=== PATIENT | male | born 1975 | race Caucasian/White ===

== ENCOUNTER 2018-02-06 09:37 | Outpatient (CLI) | payer MEDICAID ==
[2018-02-06 09:35] VITALS: BP 112/71
[~2018-02-06 09:37] MED LIST: GABA-532 PO; LACTC PO; METF500T4 PO; MULT-1085 PO; PER5325T PO
[2018-02-06] MEDS ORDERED: LIDOcaine 2% 5ml jelly ONE (10:27)
== END 2018-02-06 11:15 | disposition home or self-care (01) ==
LOC: ORTHO 09:37
PROVIDERS: ATTEND Nurse Practitioner Family
DX: M86.8X8 Other osteomyelitis, other site (principal); F12.90 Cannabis use, unspecified, uncomplicated; E11.69 Type 2 diabetes mellitus with other specified complication; M00.9 Pyogenic arthritis, unspecified; Z86.14 Personal history of Methicillin resistant Staphylococcus aureus infection; Z88.0 Allergy status to penicillin; Z89.612 Acquired absence of left leg above knee
CPT/HCPCS: 99214

== ENCOUNTER 2018-02-09 09:20 | Day surgery (SDC) | payer MEDICAID ==
[2018-02-09] MEDS ORDERED: LIDOcaine 2% 5ml jelly ONE (09:40)
[2018-02-09] MEDS ORDERED: HYDR-565 PO (10:23)
== END 2018-02-09 10:31 | disposition home or self-care (01) ==
LOC: WOUND CARE 09:20
PROVIDERS: ATTEND Surgery
DX: E11.622 Type 2 diabetes mellitus with other skin ulcer (principal); L89.153 Pressure ulcer of sacral region, stage 3; E11.40 Type 2 diabetes mellitus with diabetic neuropathy, unspecified; E11.52 Type 2 diabetes mellitus with diabetic peripheral angiopathy with gangrene; E11.69 Type 2 diabetes mellitus with other specified complication; M86.662 Other chronic osteomyelitis, left tibia and fibula; M00.9 Pyogenic arthritis, unspecified; F12.90 Cannabis use, unspecified, uncomplicated; Z89.612 Acquired absence of left leg above knee
CPT/HCPCS: 17250; A6021; A6206; A6213

== ENCOUNTER 2018-02-23 09:25 | Day surgery (SDC) | payer MEDICAID ==
[~2018-02-23 09:25] MED LIST changes: +HYDR-565 PO; -LACTC PO; -PER5325T PO
[2018-02-23] MEDS ORDERED: LIDOcaine 2% 5ml jelly ONE (09:42)
== END 2018-02-23 11:30 | disposition home or self-care (01) ==
LOC: WOUND CARE 09:25
PROVIDERS: ATTEND Surgery
DX: E11.622 Type 2 diabetes mellitus with other skin ulcer (principal); L98.491 Non-pressure chronic ulcer of skin of other sites limited to breakdown of skin; L89.893 Pressure ulcer of other site, stage 3; E11.42 Type 2 diabetes mellitus with diabetic polyneuropathy; E11.52 Type 2 diabetes mellitus with diabetic peripheral angiopathy with gangrene; M86.662 Other chronic osteomyelitis, left tibia and fibula; M00.9 Pyogenic arthritis, unspecified; M00.262 Other streptococcal arthritis, left knee; B95.4 Other streptococcus as the cause of diseases classified elsewhere; F12.90 Cannabis use, unspecified, uncomplicated; E11.69 Type 2 diabetes mellitus with other specified complication; Z89.612 Acquired absence of left leg above knee
CPT/HCPCS: 17250; 36416; 82948; A6021; A6206; A6212

== ENCOUNTER 2018-03-02 09:30 | Day surgery (SDC) | payer MEDICAID ==
[2018-03-02] MEDS ORDERED: LIDOcaine 2% 5ml jelly ONE (10:08)
== END 2018-03-02 11:00 | disposition home or self-care (01) ==
LOC: WOUND CARE 09:30
PROVIDERS: ATTEND Surgery
DX: E11.622 Type 2 diabetes mellitus with other skin ulcer (principal); L98.491 Non-pressure chronic ulcer of skin of other sites limited to breakdown of skin; L89.893 Pressure ulcer of other site, stage 3; E11.42 Type 2 diabetes mellitus with diabetic polyneuropathy; E11.52 Type 2 diabetes mellitus with diabetic peripheral angiopathy with gangrene; E11.69 Type 2 diabetes mellitus with other specified complication; M86.662 Other chronic osteomyelitis, left tibia and fibula; M00.9 Pyogenic arthritis, unspecified; M00.262 Other streptococcal arthritis, left knee; B95.4 Other streptococcus as the cause of diseases classified elsewhere; F12.90 Cannabis use, unspecified, uncomplicated; Z89.612 Acquired absence of left leg above knee
CPT/HCPCS: 36416; 82948; 97597; A6021; A6206; A6213; A4456

== ENCOUNTER 2018-03-06 10:22 | Outpatient (CLI) | payer MEDICAID ==
[~2018-03-06 10:22] MED LIST changes: +METF-436 PO; -METF500T4 PO
== END 2018-03-06 11:55 | disposition home or self-care (01) ==
LOC: ORTHO 10:22
PROVIDERS: ATTEND Nurse Practitioner Family
DX: M86.9 Osteomyelitis, unspecified (principal); E11.69 Type 2 diabetes mellitus with other specified complication

== ENCOUNTER 2018-03-09 09:25 | Day surgery (SDC) | payer MEDICAID ==
[2018-03-09] MEDS ORDERED: LIDOcaine 2% 5ml jelly ONE ×2 (09:40)
== END 2018-03-09 10:49 | disposition home or self-care (01) ==
LOC: WOUND CARE 09:25
PROVIDERS: ATTEND Surgery
DX: E11.622 Type 2 diabetes mellitus with other skin ulcer (principal); L98.491 Non-pressure chronic ulcer of skin of other sites limited to breakdown of skin; L89.893 Pressure ulcer of other site, stage 3; E11.42 Type 2 diabetes mellitus with diabetic polyneuropathy; E11.52 Type 2 diabetes mellitus with diabetic peripheral angiopathy with gangrene; E11.69 Type 2 diabetes mellitus with other specified complication; M86.662 Other chronic osteomyelitis, left tibia and fibula; M00.9 Pyogenic arthritis, unspecified; M00.262 Other streptococcal arthritis, left knee; B95.4 Other streptococcus as the cause of diseases classified elsewhere; F12.90 Cannabis use, unspecified, uncomplicated; Z89.612 Acquired absence of left leg above knee
CPT/HCPCS: 15271; 36416; 82948; A6209; A6222; Q4131; A6250

== ENCOUNTER 2018-03-09 10:56 | Outpatient (CLI) | payer MEDICAID | END 2018-03-09 11:43 | disposition home or self-care (01) | LOC: ORTHO 10:56 | PROVIDERS: ATTEND Nurse Practitioner Family | DX: M86.8X8 Other osteomyelitis, other site (principal); E11.69 Type 2 diabetes mellitus with other specified complication; M00.9 Pyogenic arthritis, unspecified; Z88.0 Allergy status to penicillin; Z89.612 Acquired absence of left leg above knee; Z88.8 Allergy status to other drugs, medicaments and biological substances | CPT/HCPCS: 99212 ==

== ENCOUNTER 2018-03-23 09:30 | Day surgery (SDC) | payer MEDICAID ==
[2018-03-23] MEDS ORDERED: LIDOcaine 2% 5ml jelly ONE (09:51)
== END 2018-03-23 11:11 | disposition home or self-care (01) ==
LOC: WOUND CARE 09:30
PROVIDERS: ATTEND Surgery
DX: E11.622 Type 2 diabetes mellitus with other skin ulcer (principal); L98.491 Non-pressure chronic ulcer of skin of other sites limited to breakdown of skin; L89.893 Pressure ulcer of other site, stage 3; E11.42 Type 2 diabetes mellitus with diabetic polyneuropathy; E11.52 Type 2 diabetes mellitus with diabetic peripheral angiopathy with gangrene; E11.69 Type 2 diabetes mellitus with other specified complication; M86.662 Other chronic osteomyelitis, left tibia and fibula; M00.9 Pyogenic arthritis, unspecified; M00.262 Other streptococcal arthritis, left knee; B95.4 Other streptococcus as the cause of diseases classified elsewhere; F12.90 Cannabis use, unspecified, uncomplicated; Z89.612 Acquired absence of left leg above knee
CPT/HCPCS: 17250; A6021; A6196; A6206; A6213

== ENCOUNTER 2018-03-30 09:12 | Day surgery (SDC) | payer MEDICAID ==
[2018-03-30] MEDS ORDERED: LIDOcaine 2% 5ml jelly ONE (09:51)
== END 2018-03-30 11:15 | disposition home or self-care (01) ==
LOC: WOUND CARE 09:12
PROVIDERS: ATTEND Surgery
DX: E11.622 Type 2 diabetes mellitus with other skin ulcer (principal); L89.893 Pressure ulcer of other site, stage 3; L98.491 Non-pressure chronic ulcer of skin of other sites limited to breakdown of skin; E11.621 Type 2 diabetes mellitus with foot ulcer; L97.511 Non-pressure chronic ulcer of other part of right foot limited to breakdown of skin; E11.42 Type 2 diabetes mellitus with diabetic polyneuropathy; E11.52 Type 2 diabetes mellitus with diabetic peripheral angiopathy with gangrene; E11.69 Type 2 diabetes mellitus with other specified complication; M86.662 Other chronic osteomyelitis, left tibia and fibula; B35.3 Tinea pedis; M00.9 Pyogenic arthritis, unspecified; M00.262 Other streptococcal arthritis, left knee; F12.90 Cannabis use, unspecified, uncomplicated; Z89.612 Acquired absence of left leg above knee
CPT/HCPCS: 17250; A6021; A6206; A6212

== ENCOUNTER 2018-04-06 09:22 | Day surgery (SDC) | payer MEDICAID ==
[2018-04-06] MEDS ORDERED: LIDOcaine 2% 5ml jelly ONE (09:48)
[2018-04-06] MEDS ORDERED: mupirocin 2% ointment 22GM ONE (10:29)
== END 2018-04-06 10:38 | disposition home or self-care (01) ==
LOC: WOUND CARE 09:22
PROVIDERS: ATTEND Surgery
DX: E11.622 Type 2 diabetes mellitus with other skin ulcer (principal); L89.893 Pressure ulcer of other site, stage 3; L98.491 Non-pressure chronic ulcer of skin of other sites limited to breakdown of skin; E11.621 Type 2 diabetes mellitus with foot ulcer; L97.511 Non-pressure chronic ulcer of other part of right foot limited to breakdown of skin; E11.42 Type 2 diabetes mellitus with diabetic polyneuropathy; E11.52 Type 2 diabetes mellitus with diabetic peripheral angiopathy with gangrene; E11.65 Type 2 diabetes mellitus with hyperglycemia; E11.69 Type 2 diabetes mellitus with other specified complication; M86.662 Other chronic osteomyelitis, left tibia and fibula; B35.3 Tinea pedis; M00.9 Pyogenic arthritis, unspecified; M00.262 Other streptococcal arthritis, left knee; F12.90 Cannabis use, unspecified, uncomplicated; Z89.612 Acquired absence of left leg above knee
CPT/HCPCS: 17250; 36416; 82948; A6021; A6206; A6212

== ENCOUNTER 2018-04-20 09:28 | Day surgery (SDC) | payer MEDICAID ==
[2018-04-20] MEDS ORDERED: LIDOcaine 2% 5ml jelly ONE (09:42)
== END 2018-04-20 11:26 | disposition home or self-care (01) ==
LOC: WOUND CARE 09:28
PROVIDERS: ATTEND Surgery
DX: E11.622 Type 2 diabetes mellitus with other skin ulcer (principal); L89.893 Pressure ulcer of other site, stage 3; L98.491 Non-pressure chronic ulcer of skin of other sites limited to breakdown of skin; E11.621 Type 2 diabetes mellitus with foot ulcer; L97.511 Non-pressure chronic ulcer of other part of right foot limited to breakdown of skin; E11.42 Type 2 diabetes mellitus with diabetic polyneuropathy; E11.52 Type 2 diabetes mellitus with diabetic peripheral angiopathy with gangrene; E11.65 Type 2 diabetes mellitus with hyperglycemia; E11.69 Type 2 diabetes mellitus with other specified complication; M86.662 Other chronic osteomyelitis, left tibia and fibula; B35.3 Tinea pedis; M00.9 Pyogenic arthritis, unspecified; M00.262 Other streptococcal arthritis, left knee; F12.90 Cannabis use, unspecified, uncomplicated; Z89.612 Acquired absence of left leg above knee
CPT/HCPCS: 17250; 36416; 82948; A6021; A6206; A6212

== ENCOUNTER 2018-05-04 09:25 | Day surgery (SDC) | payer MEDICAID ==
[2018-05-04] MEDS ORDERED: LIDOcaine 2% 5ml jelly ONE (09:51)
== END 2018-05-04 11:27 | disposition home or self-care (01) ==
LOC: WOUND CARE 09:25
PROVIDERS: ATTEND Surgery
DX: E11.622 Type 2 diabetes mellitus with other skin ulcer (principal); L89.153 Pressure ulcer of sacral region, stage 3; L98.491 Non-pressure chronic ulcer of skin of other sites limited to breakdown of skin; E11.42 Type 2 diabetes mellitus with diabetic polyneuropathy; E11.52 Type 2 diabetes mellitus with diabetic peripheral angiopathy with gangrene; I96 Gangrene, not elsewhere classified; E11.65 Type 2 diabetes mellitus with hyperglycemia; E11.69 Type 2 diabetes mellitus with other specified complication; M86.662 Other chronic osteomyelitis, left tibia and fibula; B35.3 Tinea pedis; M00.9 Pyogenic arthritis, unspecified; M00.262 Other streptococcal arthritis, left knee; F12.90 Cannabis use, unspecified, uncomplicated; Z89.612 Acquired absence of left leg above knee
CPT/HCPCS: 17250; A6021; A6206; A6212

== ENCOUNTER 2018-05-25 09:20 | Day surgery (SDC) | payer MEDICAID ==
[2018-05-25] MEDS: LIDOcaine 2% 5ml jelly ONE (09:59)
== END 2018-05-25 10:59 | disposition home or self-care (01) ==
LOC: WOUND CARE 09:20
PROVIDERS: ATTEND Surgery
DX: E11.622 Type 2 diabetes mellitus with other skin ulcer (principal); L89.153 Pressure ulcer of sacral region, stage 3; L98.491 Non-pressure chronic ulcer of skin of other sites limited to breakdown of skin; E11.42 Type 2 diabetes mellitus with diabetic polyneuropathy; E11.52 Type 2 diabetes mellitus with diabetic peripheral angiopathy with gangrene; I96 Gangrene, not elsewhere classified; E11.65 Type 2 diabetes mellitus with hyperglycemia; E11.69 Type 2 diabetes mellitus with other specified complication; M86.662 Other chronic osteomyelitis, left tibia and fibula; B35.3 Tinea pedis; M00.9 Pyogenic arthritis, unspecified; M00.262 Other streptococcal arthritis, left knee; F12.90 Cannabis use, unspecified, uncomplicated; Z89.612 Acquired absence of left leg above knee
CPT/HCPCS: 17250; 36416; 82948; A6021; A6206; A6212

== ENCOUNTER 2018-07-10 13:20 | Emergency (ER) | payer MEDICAID ==
[~2018-07-10] VITALS: Ht 177.8 cm; Wt 77.3 kg
[2018-07-10] MEDS ORDERED: normal saline 1000ML IV soln IV ONE (13:40)
[2018-07-10 14:11] LABS: BASOPHILS % (AUTO) 0.2 % (0-1); EOSINOPHILS % (AUTO) 0.1 % (0-6); HEMATOCRIT 30.4 % (42.0-52.0); HEMOGLOBIN 10.6 g/dl (14.0-17.9); LYMPHOCYTES # (AUTO) 0.4 X10'3 (1.1-4.8); LYMPHOCYTES % (AUTO) 3.6 % (21-51); MEAN CORPUSCULAR HEMOGLOBIN 30.4 PG (27.0-31.0); MEAN CORPUSCULAR HGB CONC 34.7 % (33.0-36.5); MEAN CORPUSCULAR VOLUME 87.7 FL (78-98); MEAN PLATELET VOLUME 10.2 FL (7.4-10.4); MONOCYTES # (AUTO) 0.9 X10'3 (0-0.9); MONOCYTES % (AUTO) 7.8 % (2-12); NEUTROPHILS # (AUTO) 9.9 X10'3 (1.8-7.7); NEUTROPHILS % (AUTO) 88.3 % (42-75); PLATELET COUNT 169 X10'3 (140-440); RED BLOOD COUNT 3.47 X10'6 (4.70-6.10); RED CELL DISTRIBUTION WIDTH 12.9 % (11.5-14.5); WHITE BLOOD COUNT 11.2 X10'3 (4.5-11.0)
[2018-07-10 14:21] LABS: PARTIAL THROMBOPLASTIN TIME 31 SECONDS (22-32)
[2018-07-10 14:30] LABS: PLATELET ESTIMATE NORMAL; TOTAL CELLS COUNTED 100
[2018-07-10 14:35] LABS: ALANINE AMINOTRANSFERASE 16 U/L (12-78); ALBUMIN/GLOBULIN RATIO 0.8 (1.1-1.5); ALKALINE PHOSPHATASE 69 IU/L (46-116); ANION GAP 13 (8-16); ASPARTATE AMINO TRANSFERASE 11 U/L (10-37); BILIRUBIN,TOTAL 0.7 MG/DL (0.1-1.0); BLOOD UREA NITROGEN 15 MG/DL (7-18); BUN/CREATININE RATIO 21.4 (5.4-32.0); CALCIUM 9.1 MG/DL (8.5-10.1); CHLORIDE 102 MMOL/L (99-107); GLUCOSE 109 MG/DL (70-104); MAGNESIUM 1.6 MG/DL (1.5-2.4); POTASSIUM 3.3 MMOL/L (3.5-5.1); SODIUM 137 MMOL/L (135-145); TOTAL CARBON DIOXIDE 22.5 MMOL/L (24-32); TOTAL PROTEIN 6.7 G/DL (6.4-8.2); eGFR > 90 ML/MIN
[2018-07-10 14:42] LABS: CLARITY,URINE CLEAR (Clear); COLOR,URINE YELLOW (Yellow); GLUCOSE, URINE NEGATIVE (Neg); KETONES,URINE >=80 mg/dl (Neg); LEUKOCYTE ESTERASE ,URINE NEGATIVE (Neg); NITRITES, URINE NEGATIVE (Neg); OCCULT BLOOD,URINE SMALL (Neg); PROTEIN,URINE 30 mg/dl (Neg); UROBILINOGEN,URINE 0.2 E.U/dL (0.2-1.0)
[2018-07-10 14:44] LABS: UA COLLECTION TYPE URINAL
[2018-07-10 14:52] LABS: BACTERIA,URINE 1+ /HPF (Neg); HYALINE CASTS 0-3 /LPF (NEGATIVE); MUCUS STRANDS FEW /LPF (Neg); SQUAMOUS EPITHELIAL CELL,UR FEW /LPF (FEW); WBC,URINE 0-4 /HPF (0-4)
[2018-07-10] MEDS ORDERED: iohexol 300mg/ml 100ml inj. ONE (14:52)
[2018-07-10] MEDS ORDERED: MESSAGE TO NURSING PO NR (16:32)
[2018-07-10] MEDS ORDERED: metroNIDAZOLE-Flagyl 500mg/NS 100 ML IV ONE (18:00)
[2018-07-10] MEDS ORDERED: acetaminophen 325mg tablet PO ONE (18:00)
[2018-07-10] MEDS ORDERED: ondansetron/PF 4mg/2ml inj IV ONE (18:00)
[2018-07-10] MEDS ORDERED: normal saline 1000ML IV soln IVB ONE (18:00)
[2018-07-10] MEDS ORDERED: levoFLOXACIN-Levaquin 500mg/D5 100 ML IV ONE (18:00)
[2018-07-10] MEDS ORDERED: CIPR-230 PO (19:14)
[2018-07-10] MEDS ORDERED: METR500T4 PO (19:14)
[2018-07-10] MEDS ORDERED: ONDA8TAB6 PO (19:19)
[2018-07-10 19:46] VITALS: BP 121/57
== END 2018-07-10 23:06 | disposition home or self-care (01) ==
LOC: ER 13:20
DX: K52.9 Noninfective gastroenteritis and colitis, unspecified (principal); E86.0 Dehydration; R50.9 Fever, unspecified; E11.9 Type 2 diabetes mellitus without complications; G89.29 Other chronic pain; Z56.0 Unemployment, unspecified; Z93.3 Colostomy status; Z88.0 Allergy status to penicillin; Z88.1 Allergy status to other antibiotic agents; Z91.012 Allergy to eggs
CPT/HCPCS: 36415; 71045; 74177; 80053; 81001; 83605; 83735; 84145; 85025; 85610; 85730; 87040; 96361; 96365; 96375; 99285; J1956; J2405; J3490; J7030; Q9967

== ENCOUNTER 2018-07-20 10:28 | Day surgery (SDC) | payer MEDICAID ==
[~2018-07-20 10:28] MED LIST changes: +CIPR-230 PO; +METR500T4 PO; +ONDA8TAB6 PO
[2018-07-20] MEDS ORDERED: LIDOcaine/PRILOcaine 5gm cream TP ONE (11:14)
== END 2018-07-20 11:47 | disposition home or self-care (01) ==
LOC: WOUND CARE 10:28
PROVIDERS: ATTEND Surgery
DX: E11.622 Type 2 diabetes mellitus with other skin ulcer (principal); L89.153 Pressure ulcer of sacral region, stage 3; L98.491 Non-pressure chronic ulcer of skin of other sites limited to breakdown of skin; E11.42 Type 2 diabetes mellitus with diabetic polyneuropathy; E11.52 Type 2 diabetes mellitus with diabetic peripheral angiopathy with gangrene; I96 Gangrene, not elsewhere classified; E11.65 Type 2 diabetes mellitus with hyperglycemia; E11.69 Type 2 diabetes mellitus with other specified complication; M86.662 Other chronic osteomyelitis, left tibia and fibula; B35.3 Tinea pedis; M00.9 Pyogenic arthritis, unspecified; M00.262 Other streptococcal arthritis, left knee; F12.90 Cannabis use, unspecified, uncomplicated; Z89.612 Acquired absence of left leg above knee
CPT/HCPCS: 17250; 36416; 82948; A6021; A6212

== ENCOUNTER 2018-08-10 10:26 | Day surgery (SDC) | payer MEDICAID ==
[~2018-08-10 10:26] MED LIST changes: -CIPR-230 PO; +HYDR-4353 PO; -HYDR-565 PO
[2018-08-10] MEDS ORDERED: LIDOcaine/PRILOcaine 5gm cream TP ONE (11:15)
== END 2018-08-10 12:10 | disposition home or self-care (01) ==
LOC: WOUND CARE 10:26
PROVIDERS: ATTEND Surgery
DX: E11.622 Type 2 diabetes mellitus with other skin ulcer (principal); L89.153 Pressure ulcer of sacral region, stage 3; L98.491 Non-pressure chronic ulcer of skin of other sites limited to breakdown of skin; E11.42 Type 2 diabetes mellitus with diabetic polyneuropathy; E11.52 Type 2 diabetes mellitus with diabetic peripheral angiopathy with gangrene; I96 Gangrene, not elsewhere classified; E11.65 Type 2 diabetes mellitus with hyperglycemia; E11.69 Type 2 diabetes mellitus with other specified complication; M86.662 Other chronic osteomyelitis, left tibia and fibula; B35.3 Tinea pedis; M00.9 Pyogenic arthritis, unspecified; M00.262 Other streptococcal arthritis, left knee; F12.90 Cannabis use, unspecified, uncomplicated; Z89.612 Acquired absence of left leg above knee
CPT/HCPCS: 17250; A6021; A6212

== ENCOUNTER 2018-09-07 10:15 | Day surgery (SDC) | payer MEDICAID ==
[~2018-09-07 10:15] MED LIST changes: -METR500T4 PO
[2018-09-07] MEDS ORDERED: LIDOcaine/PRILOcaine 5gm cream TP ONE (11:18)
== END 2018-09-07 11:46 | disposition home or self-care (01) ==
LOC: WOUND CARE 10:15
PROVIDERS: ATTEND Surgery
DX: E11.622 Type 2 diabetes mellitus with other skin ulcer (principal); L89.153 Pressure ulcer of sacral region, stage 3; L98.491 Non-pressure chronic ulcer of skin of other sites limited to breakdown of skin; E11.42 Type 2 diabetes mellitus with diabetic polyneuropathy; E11.52 Type 2 diabetes mellitus with diabetic peripheral angiopathy with gangrene; I96 Gangrene, not elsewhere classified; E11.65 Type 2 diabetes mellitus with hyperglycemia; E11.69 Type 2 diabetes mellitus with other specified complication; M86.662 Other chronic osteomyelitis, left tibia and fibula; B35.3 Tinea pedis; M00.9 Pyogenic arthritis, unspecified; M00.262 Other streptococcal arthritis, left knee; F12.90 Cannabis use, unspecified, uncomplicated; Z89.612 Acquired absence of left leg above knee
CPT/HCPCS: 17250; 97597; A6021; A6212

== ENCOUNTER 2018-10-12 10:14 | Day surgery (SDC) | payer MEDICAID | END 2018-10-12 11:42 | disposition home or self-care (01) | LOC: WOUND CARE 10:14 | PROVIDERS: ATTEND Surgery | DX: E11.622 Type 2 diabetes mellitus with other skin ulcer (principal); L89.153 Pressure ulcer of sacral region, stage 3; L98.491 Non-pressure chronic ulcer of skin of other sites limited to breakdown of skin; E11.42 Type 2 diabetes mellitus with diabetic polyneuropathy; E11.52 Type 2 diabetes mellitus with diabetic peripheral angiopathy with gangrene; I96 Gangrene, not elsewhere classified; E11.65 Type 2 diabetes mellitus with hyperglycemia; M86.662 Other chronic osteomyelitis, left tibia and fibula; B35.3 Tinea pedis; M00.9 Pyogenic arthritis, unspecified; M00.262 Other streptococcal arthritis, left knee; F12.90 Cannabis use, unspecified, uncomplicated; Z89.612 Acquired absence of left leg above knee | CPT/HCPCS: 36416; 82948; 97597; A6021; A6206; A6212 ==

== ENCOUNTER 2021-06-07 12:51 | Inpatient (IN) | payer MEDICAID ==
[~2021-06-07] VITALS: Ht 177.8 cm; Wt 84.5 kg
[2021-06-07] MEDS ORDERED: diazepam inj 5 MG/ML inj. IV ONE (13:25)
[2021-06-07 13:39] LABS: EOSINOPHILS # (AUTO) 0.1 X10'3 (0-0.9); WHITE BLOOD COUNT 14.8 X10'3 (4.5-11.0)
[2021-06-07 13:41] LABS: EOSINOPHILS % (AUTO) 0.4 % (0-6); RED BLOOD COUNT 4.97 X10'6 (4.70-6.10)
[2021-06-07 13:46] LABS: BASOPHILS % (AUTO) 0.2 % (0-1); HEMATOCRIT 43.3 % (42.0-52.0); HEMOGLOBIN 14.3 g/dl (14.0-17.9); LYMPHOCYTES # (AUTO) 0.9 X10'3 (1.1-4.8); LYMPHOCYTES % (AUTO) 5.8 % (21-51); MEAN CORPUSCULAR HEMOGLOBIN 28.7 PG (27.0-31.0); MEAN CORPUSCULAR VOLUME 87.1 FL (78-98); MEAN PLATELET VOLUME 10.3 FL (7.4-10.4); MONOCYTES # (AUTO) 0.9 X10'3 (0-0.9); MONOCYTES % (AUTO) 6.2 % (2-12); NEUTROPHILS % (AUTO) 87.4 % (42-75); PLATELET COUNT 235 X10'3 (140-440)
[2021-06-07 13:55] LABS: ALANINE AMINOTRANSFERASE 29 U/L (12-78); ALBUMIN 4.3 G/DL (3.4-5.0); ALBUMIN/GLOBULIN RATIO 1.2 (1.1-1.5); ALKALINE PHOSPHATASE 118 IU/L (46-116); ANION GAP 12 (8-16); ASPARTATE AMINO TRANSFERASE 12 U/L (10-37); BILIRUBIN,TOTAL 0.3 MG/DL (0.1-1.0); BLOOD UREA NITROGEN 17 MG/DL (7-18); BUN/CREATININE RATIO 15.7 (5.4-32.0); CALCIUM 9.1 MG/DL (8.5-10.1); CHLORIDE 102 MMOL/L (99-107); CREATININE 1.08 MG/DL (0.60-1.10); GLUCOSE 352 MG/DL (70-104); POTASSIUM 4.6 MMOL/L (3.5-5.1); SODIUM 140 MMOL/L (135-145); TOTAL CARBON DIOXIDE 25.7 MMOL/L (24-32); TOTAL PROTEIN 7.8 G/DL (6.4-8.2); eGFR 73 ML/MIN
[2021-06-07] MEDS ORDERED: GLIP5TAB13 PO (14:48)
[2021-06-07] MEDS ORDERED: morphine 2 MG/ML inj. syringe IV PRN (15:30)
[2021-06-07] MEDS ORDERED: ondansetron/PF 4mg/2ml inj IV PRN (15:30)
[2021-06-07] MEDS ORDERED: magnesium Cl slow-release 64mg tablet PO PRN (15:30)
[2021-06-07] MEDS ORDERED: magnesium 2GM in 50ml NS 50 ML IV PRN (15:30)
[2021-06-07] MEDS ORDERED: potassium Cl 40MEQ/1/2NS 520ml 520 ML IV PRN ×2 (15:30)
[2021-06-07] MEDS ORDERED: potassium Cl 20 mEq SR tablet PO PRN ×2 (15:30)
[2021-06-07] MEDS ORDERED: acetaminophen 325mg tablet PO PRN (15:30)
[2021-06-07] MEDS ORDERED: magnesium 4gm in 100ml NS 100 ML IV PRN (15:30)
[2021-06-07 15:49] LABS: CLARITY,URINE CLEAR (Clear); COLOR,URINE YELLOW (Yellow); GLUCOSE, URINE >=1000 mg/dl (Neg); KETONES,URINE NEGATIVE (Neg); LEUKOCYTE ESTERASE ,URINE NEGATIVE (Neg); NITRITES, URINE NEGATIVE (Neg); OCCULT BLOOD,URINE NEGATIVE (Neg); PH,URINE 6.5 (4.8-8.0); PROTEIN,URINE NEGATIVE (Neg); UROBILINOGEN,URINE 0.2 E.U/dL (0.2-1.0)
[2021-06-07 15:50] LABS: UA COLLECTION TYPE URINAL
[2021-06-07 16:00] LABS: BACTERIA,URINE FEW /HPF (Neg); RBC,URINE NONE SEEN /HPF (0-2); WBC,URINE 0-4 /HPF (0-4)
[2021-06-07 16:01] LABS: MUCUS STRANDS NONE SEEN /LPF (Neg); SQUAMOUS EPITHELIAL CELL,UR NONE SEEN /LPF (FEW)
[2021-06-07] MEDS ORDERED: glucagon, human recombinant 1mg kit SUBCUT PRN (18:55)
[2021-06-07] MEDS ORDERED: dextrose 50%-water 50ml dispensing syringe IV PRN ×2 (18:55)
[2021-06-07] MEDS ORDERED: MESSAGE TO PHARMACY PO ONE (18:55)
[2021-06-07] MEDS ORDERED: dextrose ORAL solution 15 GM/59 ML bottle PO PRN ×2 (18:55)
[2021-06-07 19:17] LABS: HEMOGLOBIN A1C 9.3 % (4.5-6.2)
[2021-06-07 20:00] VITALS: BP 144/104
[2021-06-07] MEDS: docusate sod 100mg capsule PO SCH (20:00)
[2021-06-07] MEDS: K and/or MAG REPLACEMENT MC SCH (20:00)
[2021-06-07] MEDS: insulin glargine (Lantus) pen - multi-dose SQ SCH (21:00)
[2021-06-07] MEDS ORDERED: pantoprazole 40 MG vial IV ONE (21:30)
[2021-06-07] MEDS: HYDROcodone/acetaminophen 5mg/325mg tablet PO PRN (21:50)
[2021-06-07] MEDS: gabapentin 300mg capsule PO SCH (21:50)
[2021-06-07] MEDS: normal saline 1000ml 1,000 ML IV SCH (21:53)
[2021-06-07 22:00] VITALS: BP 141/77
[2021-06-07] MEDS: morphine 2 MG/ML inj. syringe IV PRN (23:07)
[2021-06-08] MEDS: HYDROcodone/acetaminophen 5mg/325mg tablet PO PRN (01:33)
[2021-06-08] MEDS: morphine 2 MG/ML inj. syringe IV PRN ×3 (03:37→22:32)
[2021-06-08] MEDS: normal saline 1000ml 1,000 ML IV SCH ×3 (04:50→21:30)
[2021-06-08 06:30] VITALS: BP 140/71
--- NOTE | 2021-06-08 06:30 | NUR ---
Patient in room [facility]. I have received report from jovana rn and had the opportunity to ask questions and assume patient care.
[2021-06-08] MEDS: heparin, porcine 5000 units/ml vial SQ SCH ×2 (06:56→20:43)
[2021-06-08] MEDS: multivitamins, therapeutics tablet PO SCH (06:57)
[2021-06-08] MEDS: docusate sod 100mg capsule PO SCH ×2 (06:57→20:00)
[2021-06-08] MEDS: pantoprazole 40 MG vial IV SCH (07:38)
[2021-06-08] MEDS: gabapentin 300mg capsule PO SCH ×3 (07:38→20:43)
[2021-06-08 07:49] LABS: BASOPHILS % (AUTO) 0.3 % (0-1); EOSINOPHILS # (AUTO) 0.2 X10'3 (0-0.9); EOSINOPHILS % (AUTO) 1.5 % (0-6); HEMATOCRIT 39.3 % (42.0-52.0); LYMPHOCYTES # (AUTO) 0.9 X10'3 (1.1-4.8); LYMPHOCYTES % (AUTO) 7.1 % (21-51); MEAN CORPUSCULAR VOLUME 87.7 FL (78-98); MEAN PLATELET VOLUME 10.2 FL (7.4-10.4); MONOCYTES % (AUTO) 8.5 % (2-12); NEUTROPHILS % (AUTO) 82.6 % (42-75); PLATELET COUNT 166 X10'3 (140-440); RED BLOOD COUNT 4.49 X10'6 (4.70-6.10); RED CELL DISTRIBUTION WIDTH 12.8 % (11.5-14.5); WHITE BLOOD COUNT 12.1 X10'3 (4.5-11.0)
[2021-06-08 07:57] LABS: ALBUMIN 3.3 G/DL (3.4-5.0); ANION GAP 9 (8-16); BLOOD UREA NITROGEN 12 MG/DL (7-18); BUN/CREATININE RATIO 13.3 (5.4-32.0); CALCIUM 7.9 MG/DL (8.5-10.1); CHLORIDE 106 MMOL/L (99-107); GLUCOSE 235 MG/DL (70-104); MAGNESIUM 1.7 MG/DL (1.5-2.4); POTASSIUM 4.1 MMOL/L (3.5-5.1); SODIUM 140 MMOL/L (135-145); TOTAL CARBON DIOXIDE 25.5 MMOL/L (24-32); eGFR 90 ML/MIN
[2021-06-08] MEDS: K and/or MAG REPLACEMENT MC SCH ×2 (08:00→20:00)
[2021-06-08] MEDS ORDERED: oxyCODONE/APAP 10/325mg tablet PO PRN (08:05)
[2021-06-08] MEDS: oxyCODONE/APAP 10/325mg tablet PO PRN ×3 (09:11→20:43)
[2021-06-08] MEDS: insulin Lispro (HumaLOG) vial - multi-dose SQ SCH ×3 (09:15→20:45)
--- NOTE | 2021-06-08 11:32 | NUR ---
DM consult: Pt hx T2DM A1C 9.3 takes glipizide and metformin at home per EMR. 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 Pt seen by PENELOPE for written/verbal DM ed w/ RD contact information provided. Pt reports hx Crohn's and Ulcerative Colitis does not eat many carbs at home mostly meats and typically eats lower fiber content foods to avoid digestions issues. Noted egg allergy in EMR; pt reports nausea on consumptions of just eggs but can tolerate eggs in any other products fine. PENELOPE d/w RN regarding updating allergy list; will send no eggs to eat, cooked vegetables only, and no wheat to avoid additional fibers given pt hx and since reports won't eat. Dietary notified. Noted pt carb controlled diet completed and regular diet ordered in EMR; likely accident. PENELOPE d/w RN for carb controlled diet this admit if MD agreeable given DM hx. Addendum: 06/08/21 at [address] Amended: Links added.
[2021-06-08 12:37] VITALS: BP 122/71
[2021-06-08] MEDS: cyclobenzaprine 10mg tablet PO PRN (15:49)
[2021-06-08 18:00] VITALS: BP 143/78
--- NOTE | 2021-06-08 18:12 | NUR ---
Problems reprioritized. Patient report given, questions answered & plan of care reviewed with MYESHA JEFFERSON.
--- NOTE | 2021-06-08 18:35 | NUR ---
Patient in room [facility]015. I have received report from Genie JEFFERSON and had the opportunity to ask questions and assume patient care.
[2021-06-08 22:00] VITALS: BP 138/78
[2021-06-08] MEDS: insulin glargine (Lantus) pen - multi-dose SQ SCH (22:33)
[2021-06-09] MEDS: cyclobenzaprine 10mg tablet PO PRN ×2 (02:22→20:27)
[2021-06-09] MEDS: oxyCODONE/APAP 10/325mg tablet PO PRN ×5 (02:22→21:29)
[2021-06-09] MEDS: morphine 2 MG/ML inj. syringe IV PRN ×2 (05:57→10:12)
[2021-06-09] MEDS: normal saline 1000ml 1,000 ML IV SCH ×3 (05:57→22:30)
[2021-06-09 06:00] VITALS: BP 148/80
--- NOTE | 2021-06-09 06:05 | NUR ---
received report from girma greer
--- NOTE | 2021-06-09 06:25 | NUR ---
Problems reprioritized. Patient report given, questions answered & plan of care reviewed with Wanda JEFFERSON.
[2021-06-09 06:34] LABS: BASOPHILS % (AUTO) 0.3 % (0-1); EOSINOPHILS # (AUTO) 0.2 X10'3 (0-0.9); EOSINOPHILS % (AUTO) 1.5 % (0-6); HEMATOCRIT 37.6 % (42.0-52.0); HEMOGLOBIN 12.8 g/dl (14.0-17.9); LYMPHOCYTES # (AUTO) 0.8 X10'3 (1.1-4.8); LYMPHOCYTES % (AUTO) 6.7 % (21-51); MEAN CORPUSCULAR HEMOGLOBIN 29.6 PG (27.0-31.0); MEAN CORPUSCULAR HGB CONC 33.9 g/dL (33.0-36.5); MEAN CORPUSCULAR VOLUME 87.3 FL (78-98); MEAN PLATELET VOLUME 10.2 FL (7.4-10.4); MONOCYTES # (AUTO) 0.8 X10'3 (0-0.9); MONOCYTES % (AUTO) 6.5 % (2-12); NEUTROPHILS # (AUTO) 10.4 X10'3 (1.8-7.7); PLATELET COUNT 149 X10'3 (140-440); RED BLOOD COUNT 4.31 X10'6 (4.70-6.10); RED CELL DISTRIBUTION WIDTH 12.7 % (11.5-14.5); WHITE BLOOD COUNT 12.2 X10'3 (4.5-11.0)
[2021-06-09 06:51] LABS: ALBUMIN 3.2 G/DL (3.4-5.0); ANION GAP 9 (8-16); BLOOD UREA NITROGEN 10 MG/DL (7-18); BUN/CREATININE RATIO 9.9 (5.4-32.0); CALCIUM 7.8 MG/DL (8.5-10.1); CHLORIDE 104 MMOL/L (99-107); CREATININE 1.01 MG/DL (0.60-1.10); GLUCOSE 207 MG/DL (70-104); MAGNESIUM 1.8 MG/DL (1.5-2.4); POTASSIUM 3.8 MMOL/L (3.5-5.1); SODIUM 139 MMOL/L (135-145); TOTAL CARBON DIOXIDE 26.5 MMOL/L (24-32); eGFR 79 ML/MIN
[2021-06-09] MEDS: multivitamins, therapeutics tablet PO SCH (07:11)
[2021-06-09] MEDS: gabapentin 300mg capsule PO SCH ×3 (07:11→20:30)
[2021-06-09] MEDS: pantoprazole 40 MG vial IV SCH (07:12)
[2021-06-09] MEDS: heparin, porcine 5000 units/ml vial SQ SCH ×2 (07:15→20:28)
[2021-06-09] MEDS: docusate sod 100mg capsule PO SCH ×2 (07:19→20:00)
[2021-06-09] MEDS: K and/or MAG REPLACEMENT MC SCH ×2 (08:00→20:00)
[2021-06-09] MEDS: insulin Lispro (HumaLOG) vial - multi-dose SQ SCH ×3 (08:35→18:55)
[2021-06-09 11:07] VITALS: BP 135/78
--- NOTE | 2021-06-09 18:09 | NUR ---
gave report to january,
[2021-06-09 18:30] VITALS: BP 134/74
[2021-06-09] MEDS: insulin glargine (Lantus) pen - multi-dose SQ SCH (21:32)
[2021-06-09 22:00] VITALS: BP 129/82
[2021-06-10] MEDS: oxyCODONE/APAP 10/325mg tablet PO PRN ×5 (01:42→19:08)
[2021-06-10 06:00] VITALS: BP 125/76
--- NOTE | 2021-06-10 06:36 | NUR ---
Patient in room [facility]. I have received report from jovana rn and had the opportunity to ask questions and assume patient care.
[2021-06-10] MEDS: normal saline 1000ml 1,000 ML IV SCH ×2 (06:50→08:48)
[2021-06-10 07:10] LABS: BASOPHILS % (AUTO) 0.2 % (0-1); EOSINOPHILS # (AUTO) 0.1 X10'3 (0-0.9); EOSINOPHILS % (AUTO) 1.5 % (0-6); HEMATOCRIT 37.9 % (42.0-52.0); HEMOGLOBIN 12.7 g/dl (14.0-17.9); LYMPHOCYTES # (AUTO) 1.2 X10'3 (1.1-4.8); LYMPHOCYTES % (AUTO) 12.7 % (21-51); MEAN CORPUSCULAR HEMOGLOBIN 29.5 PG (27.0-31.0); MEAN CORPUSCULAR HGB CONC 33.5 g/dL (33.0-36.5); MEAN CORPUSCULAR VOLUME 88.1 FL (78-98); MEAN PLATELET VOLUME 10.6 FL (7.4-10.4); MONOCYTES # (AUTO) 0.9 X10'3 (0-0.9); MONOCYTES % (AUTO) 9.8 % (2-12); NEUTROPHILS # (AUTO) 7.2 X10'3 (1.8-7.7); NEUTROPHILS % (AUTO) 75.8 % (42-75); PLATELET COUNT 128 X10'3 (140-440); RED CELL DISTRIBUTION WIDTH 12.8 % (11.5-14.5); WHITE BLOOD COUNT 9.5 X10'3 (4.5-11.0)
[2021-06-10] MEDS: gabapentin 300mg capsule PO SCH ×3 (07:11→19:07)
[2021-06-10] MEDS: heparin, porcine 5000 units/ml vial SQ SCH ×2 (07:12→19:09)
[2021-06-10] MEDS: multivitamins, therapeutics tablet PO SCH (07:12)
[2021-06-10] MEDS: pantoprazole 40mg Tablet.DR PO SCH (07:13)
[2021-06-10 07:25] LABS: ALBUMIN 3.1 G/DL (3.4-5.0); ANION GAP 14 (8-16); BLOOD UREA NITROGEN 9 MG/DL (7-18); BUN/CREATININE RATIO 9.4 (5.4-32.0); CALCIUM 7.7 MG/DL (8.5-10.1); CHLORIDE 103 MMOL/L (99-107); CREATININE 0.96 MG/DL (0.60-1.10); GLUCOSE 178 MG/DL (70-104); MAGNESIUM 1.9 MG/DL (1.5-2.4); POTASSIUM 3.7 MMOL/L (3.5-5.1); SODIUM 138 MMOL/L (135-145); TOTAL CARBON DIOXIDE 20.6 MMOL/L (24-32); eGFR 84 ML/MIN
[2021-06-10] MEDS: K and/or MAG REPLACEMENT MC SCH ×2 (08:00→19:14)
[2021-06-10] MEDS: docusate sod 100mg capsule PO SCH ×2 (08:00→19:08)
[2021-06-10] MEDS: cyclobenzaprine 10mg tablet PO PRN (08:48)
[2021-06-10] MEDS: insulin Lispro (HumaLOG) vial - multi-dose SQ SCH ×3 (09:15→19:12)
[2021-06-10 09:59] LABS: LARGE PLATELETS FEW; PLATELET ESTIMATE DECREASED
[2021-06-10 10:00] VITALS: BP 118/71
--- NOTE | 2021-06-10 12:34 | NUR ---
DM Consult: Addressed; see prior RD note. Addendum: 06/10/21 at [address] Amended: Links added.
[2021-06-10 18:00] VITALS: BP 124/77
--- NOTE | 2021-06-10 18:09 | NUR ---
Problems reprioritized. Patient report given, questions answered & plan of care reviewed with Mitch rayo.
[2021-06-10] MEDS: insulin glargine (Lantus) pen - multi-dose SQ SCH (21:48)
[2021-06-10 22:00] VITALS: BP 111/77
[2021-06-11] MEDS: oxyCODONE/APAP 10/325mg tablet PO PRN ×4 (03:20→18:54)
[2021-06-11 06:00] VITALS: BP 124/73
--- NOTE | 2021-06-11 06:36 | NUR ---
reported to days. encouraged pt to shift bottom to reduce pressure areas and to work with PT
[2021-06-11 06:38] LABS: BASOPHILS % (AUTO) 0.4 % (0-1); EOSINOPHILS # (AUTO) 0.2 X10'3 (0-0.9); EOSINOPHILS % (AUTO) 2.5 % (0-6); HEMATOCRIT 35.4 % (42.0-52.0); HEMOGLOBIN 11.9 g/dl (14.0-17.9); LYMPHOCYTES # (AUTO) 1.1 X10'3 (1.1-4.8); LYMPHOCYTES % (AUTO) 12.2 % (21-51); MEAN CORPUSCULAR HEMOGLOBIN 29.1 PG (27.0-31.0); MEAN CORPUSCULAR HGB CONC 33.6 g/dL (33.0-36.5); MEAN CORPUSCULAR VOLUME 86.6 FL (78-98); MEAN PLATELET VOLUME 10.5 FL (7.4-10.4); MONOCYTES # (AUTO) 0.9 X10'3 (0-0.9); NEUTROPHILS # (AUTO) 6.9 X10'3 (1.8-7.7); NEUTROPHILS % (AUTO) 74.9 % (42-75); PLATELET COUNT 140 X10'3 (140-440); RED BLOOD COUNT 4.08 X10'6 (4.70-6.10); RED CELL DISTRIBUTION WIDTH 12.7 % (11.5-14.5); WHITE BLOOD COUNT 9.2 X10'3 (4.5-11.0)
--- NOTE | 2021-06-11 06:40 | NUR ---
Patient in room [facility]015. I have received report from LI Meyer and had the opportunity to ask questions and assume patient care.
[2021-06-11 07:00] LABS: ALBUMIN 2.9 G/DL (3.4-5.0); ANION GAP 12 (8-16); BLOOD UREA NITROGEN 12 MG/DL (7-18); BUN/CREATININE RATIO 11.9 (5.4-32.0); CHLORIDE 104 MMOL/L (99-107); CREATININE 1.01 MG/DL (0.60-1.10); GLUCOSE 182 MG/DL (70-104); POTASSIUM 3.7 MMOL/L (3.5-5.1); SODIUM 139 MMOL/L (135-145); TOTAL CARBON DIOXIDE 23.1 MMOL/L (24-32); eGFR 79 ML/MIN
[2021-06-11] MEDS: heparin, porcine 5000 units/ml vial SQ SCH (07:15)
[2021-06-11] MEDS: gabapentin 300mg capsule PO SCH ×2 (07:15→13:43)
[2021-06-11] MEDS: pantoprazole 40mg Tablet.DR PO SCH (07:16)
[2021-06-11] MEDS: multivitamins, therapeutics tablet PO SCH (07:16)
[2021-06-11] MEDS: docusate sod 100mg capsule PO SCH (07:19)
[2021-06-11] MEDS: K and/or MAG REPLACEMENT MC SCH (08:00)
[2021-06-11] MEDS: insulin Lispro (HumaLOG) vial - multi-dose SQ SCH ×2 (09:21→13:42)
[2021-06-11 10:00] VITALS: BP 134/82
[2021-06-11] MEDS ORDERED: HYDR-3965 PO (11:34)
[2021-06-11] MEDS ORDERED: CYCL-1 PO (11:34)
[2021-06-11] MEDS ORDERED: ASPI-1265 PO (12:40)
[2021-06-11 18:00] VITALS: BP 129/72
--- NOTE | 2021-06-11 18:34 | NUR ---
Patient in room [facility] 4015. I have received report from Ludivina JEFFERSON and had the opportunity to ask questions and assume patient care.
--- NOTE | 2021-06-11 18:44 | NUR ---
Problems reprioritized. Patient report given, LI Tyson questions answered & plan of care reviewed with .
--- NOTE | 2021-06-11 20:12 | NUR ---
Patient discharged and transported via ambulance. All belongings sent with patient, IV taken out. Patient sent with script for narcotics. Other medication faxed to pharmacy. Patient in stable condition.
== END 2021-06-11 20:10 | disposition home or self-care (01) | DRG 340 ==
LOC: ER 12:52 → ED HOLD 15:34 → ORTHO 4S 19:40
PROVIDERS: ADMIT Internal Medicine; ATTEND Internal Medicine
DX: S72.142A Displaced intertrochanteric fracture of left femur, initial encounter for closed fracture (principal); E11.42 Type 2 diabetes mellitus with diabetic polyneuropathy; Z89.612 Acquired absence of left leg above knee; F12.90 Cannabis use, unspecified, uncomplicated; G89.4 Chronic pain syndrome; I10 Essential (primary) hypertension; R91.1 Solitary pulmonary nodule; W05.0XXA Fall from non-moving wheelchair, initial encounter; Z82.3 Family history of stroke; Z82.49 Family history of ischemic heart disease and other diseases of the circulatory system; Z87.891 Personal history of nicotine dependence; Z93.3 Colostomy status; Z88.0 Allergy status to penicillin; Z88.8 Allergy status to other drugs, medicaments and biological substances; Z91.012 Allergy to eggs; Z90.49 Acquired absence of other specified parts of digestive tract; Z56.0 Unemployment, unspecified; Y93.89 Activity, other specified; Y92.098 Other place in other non-institutional residence as the place of occurrence of the external cause; Y99.8 Other external cause status; Z79.899 Other long term (current) drug therapy
CPT/HCPCS: 36415; 71045; 73502; 80048; 80053; 81001; 82948; 83036; 83735; 85008; 85025; 85610; 86885; 86900; 86901; 87081; 93005; 96374; 97161; 97530; 99285; C9113; G0378; J1644; J1815; J2270; J2405; J3360; J7030